=== PATIENT | male | born 1965 | race Caucasian/White ===

== ENCOUNTER 2017-06-18 18:15 | Emergency (ER) | payer OTHER ==
[~2017-06-18] VITALS: Ht 180.3 cm; Wt 77.3 kg
[2017-06-18] MEDS ORDERED: HYDROcodone/acetaminophen 10/325mg tab PO ONE (18:40)
[2017-06-18] MEDS ORDERED: BUPIVAcaine/PF 2.5 mg/ml (0.25%) 30ml vial IJ ONE (18:40)
[2017-06-18 18:59] VITALS: BP 142/89
[2017-06-18] MEDS ORDERED: NO HOME MEDS (19:01)
[2017-06-18] MEDS ORDERED: DOXY-200 PO (19:37)
[2017-06-18] MEDS ORDERED: HYDR-3965 PO (19:39)
== END 2017-06-18 19:53 | disposition home or self-care (01) ==
LOC: ER 18:17
DX: L02.11 Cutaneous abscess of neck (principal)
CPT/HCPCS: 10060; 87070; 99284; A6266; A6449; J3490; 87077